=== PATIENT | male | born 1990 | race Caucasian/White ===

== ENCOUNTER → 2016-08-11 | Outpatient (CLI) | payer BC ==
--- NOTE | 2016-08-11 15:52 | REP ---
Clinical: Trauma. Contusion. Technique: AP, lateral, bilateral oblique and sunrise views right knee . Findings: The osseous structures and joint spaces are intact and normal. There is no evidence for acute fracture or dislocation. No joint effusion is appreciated. Surrounding soft tissues are unremarkable. No subcutaneous emphysema or radiodense foreign body. Impression: Normal examination. No acute fracture or dislocation. Signed by Ton Alatorre MD 08/11/2016 03:44 P
== END ==
LOC: M WUC 15:06
PROVIDERS: ATTEND Physician Assistant
DX: S80.01XA Contusion of right knee, initial encounter (principal); Y92.9 Unspecified place or not applicable; Y93.9 Activity, unspecified; Y99.9 Unspecified external cause status; X58.XXXA Exposure to other specified factors, initial encounter

== ENCOUNTER 2017-04-22 15:08 | Emergency (ER) | payer BC, SELFPAY ==
[~2017-04-22] VITALS: Ht 182.9 cm; Wt 122.7 kg
[2017-04-22] MEDS ORDERED: CEFUROXIME 500 MG TAB PO ONE (16:00)
[2017-04-22] MEDS ORDERED: ADACEL/BOOSTRIX VACCINE (DIPHTH/PERTUSS/ACELL/TETANUS)0.5ML SYR (90715) IM ONE (16:00)
[2017-04-22] MEDS ORDERED: CEFU1TAB20 PO (16:05)
[2017-04-22 17:04] VITALS: BP 132/74
== END 2017-04-22 17:07 | disposition home or self-care (01) ==
LOC: M ED 15:08
DX: S61.254A Open bite of right ring finger without damage to nail, initial encounter (principal); S61.051A Open bite of right thumb without damage to nail, initial encounter; W55.01XA Bitten by cat, initial encounter; Y92.099 Unspecified place in other non-institutional residence as the place of occurrence of the external cause; Y93.89 Activity, other specified; Y99.9 Unspecified external cause status

== ENCOUNTER → 2017-10-19 | Outpatient (REF) | payer OTHER | LOC: M LAB REF 14:43 | DX: J02.9 Acute pharyngitis, unspecified (principal) | CPT/HCPCS: 87070 ==

== ENCOUNTER 2018-05-26 12:34 | Emergency (ER) | payer OTHER | END 2018-05-26 14:12 | disposition home or self-care (01) | LOC: M ED 12:34 | DX: M62.830 Muscle spasm of back (principal); Z88.0 Allergy status to penicillin | CPT/HCPCS: 99283 ==

== ENCOUNTER 2018-10-31 18:08 | Emergency (ER) | payer OTHER ==
[~2018-10-31] VITALS: Ht 182.9 cm; Wt 170.0 kg
[~2018-10-31 18:08] MED LIST: CEFU1TAB20 PO; IBUP-1022 PO; ROBA500T PO
[2018-10-31 18:09] VITALS: BP 144/96
[2018-10-31] MEDS ORDERED: IBUPROFEN 600 MG TAB PO ONE (20:15)
[2018-10-31 20:24] LABS: INFLUENZA A AMPLIFICATION POSITIVE (NEGATIVE); INFLUENZA B AMPLIFICATION NEGATIVE (NEGATIVE)
[2018-10-31] MEDS ORDERED: FLUTISP (20:30)
[2018-10-31] MEDS ORDERED: CLAR10CA3 PO (20:30)
--- NOTE | 2018-11-01 00:44 | REP ---
Clinical: Chest pain and shortness of breath. Technique: PA and lateral. Comparison: None. Findings: Evaluation is limited by underpenetration and poor inspiratory effort. Subtle increased opacity at the bilateral musa likely represent pulmonary crowding due to decreased inspiratory effort although adenopathy cannot definitively be excluded. No consolidation. No effusion. No pneumothorax. Cardiac silhouette is normal. Skeletal structures are intact. Impression: Likely within normal limits although subtle perihilar opacities raise the possibility of adenopathy. Consider follow-up examination and/or chest CT with contrast for further investigation. Electronically Signed by Ton Alatorre MD 11/01/2018 12:35 A
--- NOTE | 2018-11-07 07:33 | ED PDOC ---
Post-Departure Follow-Up pt sent certified letter and [facility] faxed formal report of cxr. see report. Jeffrey Nation MD November 07, 2018 07:33
== END 2018-10-31 20:36 | disposition home or self-care (01) ==
LOC: M ED 18:08
DX: J09.X2 Influenza due to identified novel influenza A virus with other respiratory manifestations (principal); Z20.828 Contact with and (suspected) exposure to other viral communicable diseases; Z88.0 Allergy status to penicillin

== ENCOUNTER → 2018-12-06 | Outpatient (CLI) | payer OTHER ==
[~2018-12-06] MED LIST changes: +CLAR10CA3 PO; +FLUTISP
--- NOTE | 2018-12-06 10:48 | REP ---
Chest two views HISTORY: Abnormal lung findings Comparison: 10/31/2018 The lungs are clear. The heart is normal in size. The pulmonary vasculature is normal in appearance. The bony structure is intact. IMPRESSION: No acute disease. Electronically Signed by Álvaro Damon MD 12/06/2018 10:39 A
[2018-12-06 10:59] LABS: BASO # 0.1 10^3/uL (0.0-0.2); BASO % 0.9 % (0.0-1.0); EOS # 0.8 10^3/uL (0.0-0.50); EOS % 8.1 % (0.0-3.0); HEMATOCRIT 43.7 % (42.0-52.0); HEMOGLOBIN 14.9 g/dl (13.5-17.5); LYMPH # 2.5 10^3/uL (1.5-6.5); LYMPH % 25.8 % (24.0-44.0); MEAN CORPUSCULAR HGB CONC 34.1 g/dl (32.0-36.5); MEAN CORPUSCULAR VOLUME 88.1 fl (80.0-96.0); MONO # 0.7 10^3/uL (0.0-0.8); MONO % 7.8 % (0.0-5.0); NEUTROPHILS # 5.4 10^3/uL (1.8-7.7); NEUTROPHILS % 56.9 % (36.0-66.0); PLATELET COUNT, AUTOMATED 283 10^3/uL (150-450); RED BLOOD COUNT 4.96 10^6/uL (4.30-6.10); WHITE BLOOD COUNT 9.5 10^3/uL (4.0-10.0)
[2018-12-06 11:37] LABS: ALBUMIN 3.6 GM/DL (3.2-5.2); ALT/SGPT 139 U/L (12-78); BILIRUBIN,TOTAL 0.4 MG/DL (0.2-1.0); BLOOD UREA NITROGEN 13 MG/DL (7-18); CALCIUM LEVEL 9.2 MG/DL (8.5-10.1); CARBON DIOXIDE LEVEL 27 MEQ/L (21-32); CHLORIDE LEVEL 107 MEQ/L (98-107); CHOLESTEROL LEVEL 159 MG/DL (<200); CHOLESTEROL RISK RATIO 4.184 (<5); CREATININE FOR GFR 0.85 MG/DL (0.70-1.30); FREE T3 3.6 PG/ML (2.2-4.0); FREE T4 1.12 NG/DL (0.76-1.46); GLOMERULAR FILTRATION RATE > 60.0 (>60); GLUCOSE, FASTING 91 MG/DL (70-100); HDL CHOLESTEROL 38 MG/DL (>40); LDL CHOLESTEROL 90 MG/DL (<100); NON-HDL-C 121 MG/DL; POTASSIUM SERUM 4.3 MEQ/L (3.5-5.1); SODIUM LEVEL 141 MEQ/L (136-145); TOTAL PROTEIN 7.3 GM/DL (6.4-8.2); TRIGLYCERIDES LEVEL 155 MG/DL (<150)
== END ==
LOC: M LAB 10:19
PROVIDERS: ATTEND Nurse Practitioner Family
DX: E66.01 Morbid (severe) obesity due to excess calories (principal); Z13.220 Encounter for screening for lipoid disorders; Z87.09 Personal history of other diseases of the respiratory system

== ENCOUNTER 2020-07-19 09:31 | Emergency (ER) | payer OTHER, BC ==
[~2020-07-19] VITALS: Ht 182.9 cm; Wt 154.6 kg
--- NOTE | 2020-07-19 10:26 | REP ---
INDICATION: L knee pain, reported subluxation COMPARISON: None TECHNIQUE: Four views. No sunrise view. FINDINGS: The compartments are symmetric and relatively well maintained. There is no acute fracture or destructive osseous lesion. There is a smoothly marginated well corticated tiny ossific density seen just distal to the distal pole of the patella. IMPRESSION: No acute disease <Electronically signed by Geo Soares > 07/19/20 [id number]
[2020-07-19 11:24] VITALS: BP 149/96
== END 2020-07-19 11:27 | disposition home or self-care (01) ==
LOC: M ED 09:31
DX: S83.92XA Sprain of unspecified site of left knee, initial encounter (principal); X58.XXXA Exposure to other specified factors, initial encounter; Y92.89 Other specified places as the place of occurrence of the external cause; Y99.0 Civilian activity done for income or pay

== ENCOUNTER → 2020-09-16 | Outpatient (CLI) | payer OTHER ==
--- NOTE | 2020-09-17 08:29 | REP ---
INDICATION: SPRAIN OF UNSP SITE OF LT KNEE. COMPARISON: Comparison knee radiographs July 19, 2020.. TECHNIQUE: Axial, coronal, and sagittal imaging planes utilized. T1, proton density and T2 weighted scans are obtained with and without fat saturation in the usual fashion. FINDINGS: There is some cortical irregularity of the lower pole the patella and a 5 mm accessory ossicle is seen adjacent to the lower pole of patella corresponding with the radiographs. This could be an old ununited chip fracture versus accessory ossicle. The patellar tendon is superficial to this bone density and overlies it. Patellar tendon appears intact. Quadriceps tendon is unremarkable. Cortical and medullary bone signal intensity are otherwise normal. There is a small amount of joint fluid visible. No significant Lee's cyst is seen. The trochlear groove is shallow. The patella sits somewhat lateral with respect to it. There is focal moderate chondromalacia with partial thickness articular cartilage such lesions in the central patella as well asa in the opposing surface of the femoral trochlear cartilage. There is a small zone of marrow edema in the patella at this level. Tibiofemoral articular cartilage is otherwise unremarkable. There is no evidence of medial or lateral meniscal tear. Anterior and posterior cruciate ligaments are intact in appearance. There is no evidence of medial or lateral collateral ligament disruption. Medial and lateral patellar retinacular structures appear intact. 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 Shallow trochlear groove with a somewhat lateral position of the patella. There is a small accessory ossicle at the inferior patellar pole deep to the patellar tendon. <Electronically signed by Andrey Feliz > 09/17/20 [id number]
== END ==
LOC: M RAD 18:05
PROVIDERS: ATTEND Physician Assistant
DX: S83.92XD Sprain of unspecified site of left knee, subsequent encounter (principal); M94.262 Chondromalacia, left knee; Y92.9 Unspecified place or not applicable; Y93.9 Activity, unspecified; Y99.9 Unspecified external cause status

== ENCOUNTER 2024-04-11 20:13 | Emergency (ER) | payer BC, OTHER ==
[~2024-04-11] VITALS: Ht 182.9 cm; Wt 179.2 kg
[2024-04-11 23:12] VITALS: O2SAT 98
[2024-04-12] MEDS ORDERED: DOXY-440 PO (00:28)
[2024-04-12] MEDS ORDERED: FLON1SPR NARES (00:29)
[2024-04-12] MEDS ORDERED: PSEU30TA87 PO (00:29)
[2024-04-12] MEDS: KETOROLAC 30 MG/ML 1ML VIAL IM ONE (01:03)
[2024-04-12] MEDS ORDERED: DEBR6.5S4 AS (01:41)
[2024-04-12 01:53] VITALS: BP 145/95; TEMP 96.8
== END 2024-04-12 01:57 | disposition home or self-care (01) ==
LOC: M ED 20:13
DX: J01.00 Acute maxillary sinusitis, unspecified (principal); J01.10 Acute frontal sinusitis, unspecified; H61.22 Impacted cerumen, left ear; Z88.0 Allergy status to penicillin
CPT/HCPCS: 96372; 99283; J1885